=== PATIENT | female | born 1980 | race Caucasian/White ===

== ENCOUNTER 2017-05-09 15:25 | Emergency (ER) | payer OTHER ==
[~2017-05-09] VITALS: Ht 165.1 cm; Wt 68.0 kg
[2017-05-09] MEDS ORDERED: PROTECT PLUS N237 ML PO (15:42)
== END 2017-05-09 16:35 | disposition home or self-care (01) ==
LOC: ED 15:25
DX: S06.0X0A Concussion without loss of consciousness, initial encounter (principal); S53.402A Unspecified sprain of left elbow, initial encounter; V86.52XA Driver of snowmobile injured in nontraffic accident, initial encounter
CPT/HCPCS: 70450; 73080; 99284

== ENCOUNTER 2020-08-12 17:48 | Emergency (ER) | payer OTHER ==
[~2020-08-12] VITALS: Ht 165.1 cm; Wt 68.0 kg
[~2020-08-12 17:48] MED LIST: PROTECT PLUS N237 ML PO
[2020-08-12] MEDS ORDERED: DOCUSATE SODIU250 MG PO (21:20)
== END 2020-08-12 21:47 | disposition home or self-care (01) ==
LOC: ED 17:48
DX: N20.0 Calculus of kidney (principal); D25.9 Leiomyoma of uterus, unspecified; Z30.431 Encounter for routine checking of intrauterine contraceptive device
CPT/HCPCS: 74177; 80053; 81001; 83690; 84703; 85025; 96375; 99284-25; J1885; J2270; J2405; Q9967